=== PATIENT | female | born 1945 | race Caucasian/White ===

== ENCOUNTER 2023-07-16 03:17 | Emergency (ER) | payer MEDICARE, SELFPAY ==
[2023-07-16 03:18] VITALS: BP 128/86; PULSE 100; O2SAT 96
[2023-07-16 03:29] VITALS: BP 122/66; BP 128/86; PULSE 100; PULSE 72; RESP 18; TEMP 36.8; O2SAT 96; O2SAT 97; BMI 21.0
--- NOTE | 2023-07-16 04:04 | PC.NURSE ---
This RN assumed care upon patient arrival. Patient in a C-collar and not complaining of any pain. Patient is confused at baseline per EMS d/t dementia. Patient is pleasant
--- NOTE | 2023-07-16 04:28 | ED.FALL ---
HPI - Fall General Chief Complaint: Fall Stated Complaint: Fall Time Seen by Provider: 07/16/23 04:20 Source: patient and EMS Mode of arrival: EMS Limitations: physical limitation (Dimension) History of Present Illness HPI Narrative: 78-year-old female past medical history significant for dementia, MS, on Eliquis. Patient lives at assisted patient sustained unwitnessed fall at the assisted. Patient in the emergency department denies headache, chest pain, shortness of breath, abdominal pain, blurry vision, or neck pain. Patient do not remember how she fell. Patient overall is a poor historian due to advanced dementia Related Data Allergies Allergy/AdvReac Type Severity Reaction Status Date / Time ciprofloxacin [From Cipro] Allergy Unknown Unknown Verified 07/16/23 04:26 Review of Systems Review of Systems: All other systems are reviewed and are negative Constitutional: Reports as per HPI and Reports no additional constitutional complaints Eyes: Reports as per HPI and Reports no additional eye complaints Reports system reviewed and no additional complaints, except as documented Cardiovascular: Reports as per HPI and Reports no additional cardiovascular complaints Respiratory: Reports as per HPI and Reports no additional respiratory complaints Gastrointestinal: Reports as per HPI and Reports no additional gastrointestinal complaints Genitourinary: Reports no additional female genitourinary complaints Musculoskeletal: Reports no additional musculoskeletal complaints Skin/Breast: Reports system reviewed and no additional complaints, except as docu Psychiatric: Reports no additional psychiatric complaints Endocrine: Reports no additional endocrine complaints Hematologic/Lymphatic: Reports no additional hematologic/lymphatic complaints Allergic/Immunologic: Reports no additional allergic/immunologic complaints Reports system reviewed and no additional complaints, except as documented and Reports Abnormal speech present PMF Social History Social History Advance Directives: No Advance Directives Information Provided: Yes Physical Exam Vital Signs: Vital Signs: Last Vital Signs Temp 98.3 F 07/16/23 03:29 Pulse 72 07/16/23 03:29 Resp 18 07/16/23 03:29 BP 122/66 07/16/23 03:29 Pulse Ox 97 07/16/23 03:29 O2 Del Method Room Air 07/16/23 03:29 BMI result Body Mass Index 21.0 Vital signs have been reviewed and appear to be correct. Blood pressure elevated. Heart rate normal. Respiratory rate normal. Temperature normal. Oxygen saturation normal. Appearance: Alert. No acute distress. Head: Normal external exam. Normocephalic. Atraumatic. No Meza signs noted. No raccoon eyes noted Eyes: PERRLA. EOMI. Conjunctiva and sclera normal. Eyelids normal. ENT: TM's Normal. Pharynx normal. Uvula midline. Moist mucous membranes. No trismus noted. No drooling noted. No muffled voice noted. Neck: Normal inspection. Neck supple. FROM. No adenopathy. Thyroid Normal. No meningeal signs. No neck mass noted. CVS: Normal heart rate and rhythm. Heart sound normal. No murmurs noted. Pulses normal throughout. Respiratory: No respiratory distress. Painless inspiration. Breath sounds normal. No wheezes/rales/rhonchi noted. Chest nontender. No accessory muscle usage noted or decreased air movement noted. Abdomen: Soft and nontender. Bowel sounds normal in all 4 quadrants. No distention noted. No organomegaly noted. No visible injury noted. Back: No CVA tenderness. Full range of motion noted. Skin: Skin warm and dry. Normal skin color. Normal skin turgor. No rashes/lesions/lacerations noted. Extremities: No lower extremity edema. Extremities exhibit normal range of motion. Extremities nontender. Neuro: Oriented X2 not to time or event Cranial nerve exam: II-XII are grossly intact No motor deficit. No sensory deficit. Reflexes normal. Course Reevaluation(s) Reevaluation #1: Patient is awake, alert, oriented x2 not to time, advanced dementia limited historian on with GCS of 15 CT head and cervical spine unremarkable discharge and follow-up with PCP Time: 06:20 Medical Decision Making Differential Diagnosis Differential Diagnoses: The differential diagnosis associated with the presentation includes (Mechanical fall, closed head injury, cervical spine injury.) Admission/Observation Consideration of admission/observation: Escalation of care including admission/observation considered Independent Interpretation I performed an independent interpretation of an: CT Scan (Head, cervical spine: No acute intracranial pathology, no cervical spine injury.) Radiology Impression Discussion of test interpretation with radiology: I have reviewed the radiologist's reading. Chronic Conditions Patient?s care impacted by: Other (Dementia) Discharge Plan Discharge Clinical Impression: Fall Qualifiers: Encounter type: initial encounter Qualified Code(s): W19.XXXA - Unspecified fall, initial encounter Head injury Qualifiers: Encounter type: initial encounter Qualified Code(s): S09.90XA - Unspecified injury of head, initial encounter Patient Disposition: Xfer SNF Instructions: Fall Prevention for Older Adults (ED)
[2023-07-16 06:31] VITALS: BP 119/59; PULSE 87; RESP 13; TEMP 36.6; O2SAT 98
--- NOTE | 2023-07-16 06:47 | PC.NURSE ---
verbal report given to [facility]
--- NOTE | 2023-07-16 06:55 | MHC.EDTECH ---
call out to natalie at [phone] to book transport for pt back to [facility], estimated eta given was [phone]
--- NOTE | 2023-07-16 07:53 | PC.NURSE ---
sleeping and easily woken, no complaints, skin wpd, awaiting transport, set for transport at 730, night rn gave report to snf already
== END 2023-07-16 10:17 | disposition skilled nursing facility (03) ==
PROVIDERS: Emergency Provider Emergency Medicine
DX: S09.90XA Unspecified injury of head, initial encounter (principal); W19.XXXA Unspecified fall, initial encounter; Y93.9 Activity, unspecified; Y92.129 Unspecified place in nursing home as the place of occurrence of the external cause; Y99.9 Unspecified external cause status
CPT/HCPCS: 70450; 72125; 99284

== ENCOUNTER 2023-07-31 05:58 | Outpatient (REF) | payer MEDICARE, SELFPAY | END 2023-07-31 05:59 | disposition home or self-care (01) | LOC: HO.MMNH1L 05:58 | PROVIDERS: Visit Provider Family Medicine | DX: Z13.89 Encounter for screening for other disorder (principal) ==